=== PATIENT | male | born 1995 | race Caucasian/White ===

== ENCOUNTER 2021-07-04 20:31 | Emergency (ER) | payer OTHER ==
[~2021-07-04] VITALS: Ht 182.9 cm; Wt 142.9 kg
[2021-07-04] MEDS ORDERED: IBU600 MG PO (21:47)
[2021-07-04 21:58] VITALS: BP 149/95
== END 2021-07-04 21:59 | disposition home or self-care (01) ==
LOC: M.ERS 20:31 → EDBD 20:31 → M.ERS 21:59
DX: S90.32XA Contusion of left foot, initial encounter (principal); W22.8XXA Striking against or struck by other objects, initial encounter; Y93.89 Activity, other specified; Y92.89 Other specified places as the place of occurrence of the external cause; Y99.8 Other external cause status